=== PATIENT | female | born 1945 | race Caucasian/White ===

== ENCOUNTER 2016-04-29 13:53 | Inpatient (IN) | payer BC ==
[~2016-04-29] VITALS: Ht 170.2 cm; Wt 62.8 kg
[~2016-04-29 13:53] MED LIST: ASPI-465; CALC-600; CHOL100062
[2016-04-29] MEDS ORDERED: SOD CHLORIDE 0.9% 1,000 ML IV STA ×2 (14:09)
[2016-04-29] MEDS ORDERED: ALBUTEROL 0.5% (NEB) 2.5 MG/0.5 ML AMP INH STA ×2 (14:09→14:31)
[2016-04-29] MEDS ORDERED: ONDANSETRON 4 MG INJ IV STA ×2 (14:31→16:08)
--- NOTE | 2016-04-29 14:48 | RADRPT ---
PROCEDURE: XR Chest. CLINICAL INDICATION: Abdominal pain. TECHNIQUE: Single frontal portable chest was obtained. COMPARISON: None available.. FINDINGS: Cardiomediastinal silhouette appears normal There are atherosclerotic calcifications in the thoracic aorta. Pulmonary vasculature appears normal. There is bibasilar subsegmental atelectasis. Costophrenic angles are well defined. Mild rotoscoliosis in the dorsal spine. IMPRESSION: 1. Atherosclerotic calcifications in the thoracic aorta. 2. Mild bibasilar subsegmental atelectasis. RPTAT: [facility] Physician Nette Date Time Electronically viewed and signed by Physician Nette on 04/29/2016 14:47 /
[2016-04-29] MEDS ORDERED: IBUPROFEN 600 MG TAB PO ONE (15:00)
[2016-04-29 15:11] LABS: BASOPHILS % 0.3 % (0.0-2.0); EOSINOPHILS % 0.3 % (0.0-7.0); HEMATOCRIT 40.4 % (37.0-47.0); HEMOGLOBIN 13.8 g/dl (12.0-16.0); LYMPHOCYTES # 1.5 10^3/ul (0.8-2.9); LYMPHOCYTES % 12.5 % (15.0-51.0); MEAN CORPUSCULAR HEMOGLOBIN 31.2 pg (29.0-33.0); MEAN CORPUSCULAR HGB CONC 34.1 g/dl (32.0-37.0); MEAN CORPUSCULAR VOLUME 91.6 fl (82.0-101.0); MEAN PLATELET VOLUME 6.9 fl (7.4-10.4); MONOCYTE # 0.5 10^3/ul (0.3-0.9); MONOCYTES % 4.5 % (0.0-11.0); NEUTROPHIL # 9.9 10^3/ul (1.6-7.5); NEUTROPHILS % 82.4 % (39.0-77.0); PLATELET COUNT 338 10^3/UL (140-440); RED BLOOD COUNT 4.41 10^6/ul (4.20-5.40); RED CELL DISTRIBUTION WIDTH 12.8 % (11.5-14.5); UNCORRECTED WBC 12.1 10^3/ul (4.8-10.8); WHITE BLOOD COUNT 12.1 10^3/ul (4.8-10.8)
[2016-04-29 15:13] LABS: CONDITION 1
[2016-04-29 15:30] LABS: CHLORIDE 98 mmol/L (97-110); POTASSIUM 4.6 mmol/L (3.5-5.1); SODIUM 140 mmol/L (135-144)
[2016-04-29 15:32] LABS: ANION GAP 17 (8-16); BILIRUBIN,INDIRECT 0.4 mg/dl (0-1.1); BILIRUBIN,TOTAL 0.4 mg/dl (0.2-1.3); CARBON DIOXIDE 30 mmol/L (21-31)
[2016-04-29 15:33] LABS: ALANINE AMINOTRANSFERASE 26 IU/L (13-69); ALKALINE PHOSPHATASE 84 IU/L (42-121); ASPARTATE AMINO TRANSFERASE 40 IU/L (15-46); BLOOD UREA NITROGEN 17 mg/dl (7-20); GLUCOSE 110 mg/dl (70-220); TOTAL PROTEIN 8.4 g/dl (6.1-8.1)
[2016-04-29 15:53] LABS: TROPONIN-I < 0.012 ng/ml (0.00-0.12)
[2016-04-29] MEDS ORDERED: ASPI-664 PO (16:15)
[2016-04-29] MEDS ORDERED: CALC-176 PO (16:17)
[2016-04-29] MEDS ORDERED: CHOL100062 PO (16:17)
[2016-04-29] MEDS ORDERED: DENO60DI SQ (16:24)
--- NOTE | 2016-04-29 16:50 | ERA ---
ER Documentation Chief Complaint Date/Time DATE: 04/29/16 TIME: 16:43 Chief Complaint cough x 1 week, send by pmd r/o pneumonia? ROS All systems reviewed and are negative except as per history of present illness. Medications Home Meds Reported Medications Denosumab (Prolia) 60 Mg/1 Ml Disp.syrin, 60 MG SQ [id number] 04/29/16 Cholecalciferol* (Vitamin D3*) 1,000 Unit Tablet, 1000 UNIT PO DAILY, TAB 04/29/16 Calcium Cmb 2-Mag Cmb 12-Vit D3 (Calcium 500) 1 Each Tablet, 2 TAB PO DAILY, TAB 04/29/16 Aspirin* (Aspirin* EC) 81 Mg Tablet., 81 MG PO DAILY, TAB 04/29/16 Discontinued Reported Medications Calcium (Calcium) 500 Mg Tablet 12/31/09 Cholecalciferol* (Vitamin D3*) 1,000 Unit Tablet 12/31/09 Aspirin (Adult Low Dose Aspirin) 81 Mg Tablet. 12/31/09 Allergies Allergies: Coded Allergies: No Known Allergy (Verified , 04/29/16) PMhx/Soc Hypercholesterolemia History of Surgery: Yes (RIGHT TKR 12/25) Anesthesia Reaction: No Hx Neurological Disorder: No Hx Respiratory Disorders: No Hx Cardiac Disorders: No Hx Psychiatric Problems: No Hx Miscellaneous Medical Probl: Yes (OA, OSTEOPOROSIS) Hx Substance Use: No Hx Tobacco Use: No Smoking Status: Never smoker FmHx Family History: No diabetes Physical Exam Vitals Vital Signs Date Time Temp Pulse Resp B/P Pulse Ox O2 Delivery O2 Flow Rate FiO2 04/29/16 14:47 83 20 95 21 04/29/16 14:02 98.1 89 20 139/68 99 Physical Exam GENERAL: Well-developed, appears dehydrated, afebrile HEENT: Dry mucous membranes, pink conjunctiva, no cervical spine tenderness or step-off deformities, no goiter, no jaundice or icterus, extraocular movements intact without pain. No submandibular induration, and no pharyngeal erythema NEURO: Alert and oriented 3, cranial nerves II through XII intact bilaterally, pupils equal round reactive to light, no focal deficits or facial asymmetry, sensation intact distally Strength 5/5 in upper and lower extremities bilaterally CARDIAC: Regular rate and rhythm, no murmurs rubs or gallops LUNGS: Clear bilaterally no wheezing crackles or stridor ABDOMEN: Soft nontender, no guarding, no rigidity, no rebound, no psoas sign no obturator sign. Normoactive bowel sounds SKIN: Warm and dry to touch, no abrasions, contusions, or hematomas, no lacerations, no ecchymosis, no target lesions, and without ulcers EXTREMITIES: No clubbing cyanosis or edema, calves are bilaterally symmetrical, no Homans sign, no popliteal cord sign. Distal pulses equal and bilateral PSYCH: Normal affect without agitation or irritability Result Diagram: 04/29/16 1500 04/29/16 1500 Results 24 hrs Laboratory Tests Test 04/29/16 15:00 Alanine Aminotransferase (ALT/SGPT) 26IU/L Albumin 4.0g/dl Albumin/Globulin Ratio 0.90 Alkaline Phosphatase 84IU/L Anion Gap 17 Aspartate Amino Transf (AST/SGOT) 40IU/L Basophils # 0.010^3/ul Basophils % 0.3% Blood Morphology Comment Blood Urea Nitrogen 17mg/dl Calcium Level 9.0mg/dl Carbon Dioxide Level 30mmol/L Chloride Level 98mmol/L Creatinine 0.70mg/dl Direct Bilirubin 0.00mg/dl Eosinophils # 0.010^3/ul Eosinophils % 0.3% Globulin 4.40g/dl Glucose Level 110mg/dl Hematocrit 40.4% Hemoglobin 13.8g/dl Indirect Bilirubin 0.4mg/dl Lipase 109U/L Lymphocytes # 1.510^3/ul Lymphocytes % 12.5% Mean Corpuscular Hemoglobin 31.2pg Mean Corpuscular Hemoglobin Concent 34.1g/dl Mean Corpuscular Volume 91.6fl Mean Platelet Volume 6.9fl Monocytes # 0.510^3/ul Monocytes % 4.5% Neutrophils # 9.910^3/ul Neutrophils % 82.4% Nucleated Red Blood Cells # 0.010^3/ul Nucleated Red Blood Cells % 0.0/100WBC Platelet Count 85095^3/UL Potassium Level 4.6mmol/L Red Blood Count 4.4110^6/ul Red Cell Distribution Width 12.8% Sodium Level 140mmol/L Total Bilirubin 0.4mg/dl Total Protein 8.4g/dl Troponin I < 0.012ng/ml White Blood Count 12.110^3/ul Current Medications Medications (Trade) Dose Ordered Sig/Stephanie Route PRN Reason Start Time Stop Time Status Last Admin Dose Admin Sodium Chloride 1,000 ml @ 1,000 mls/hr Q1H STAT IV 04/29/16 14:09 04/29/16 15:08 DC 04/29/16 15:02 Sodium Chloride (NS) 1,000 ml @ 1,000 mls/hr Q1H STAT IV 04/29/16 14:09 04/29/16 15:08 DC 04/29/16 14:09 Albuterol (Proventil 0.5% (Neb)) 10 mg ONCE STAT INH 04/29/16 14:09 04/29/16 14:11 DC 04/29/16 14:44 Ondansetron HCl (Zofran Inj) 4 mg ONCE STAT IV 04/29/16 14:31 04/29/16 14:32 DC 04/29/16 15:02 Ibuprofen (Motrin) 600 mg ONCE ONCE PO 04/29/16 15:00 04/29/16 15:01 DC 04/29/16 15:02 Albuterol (Proventil 0.5% (Neb)) 10 mg ONCE STAT INH 04/29/16 14:31 04/29/16 14:32 DC Ondansetron HCl (Zofran Inj) 4 mg ONCE STAT IV 04/29/16 16:08 04/29/16 16:09 DC 04/29/16 16:30 Procedures/MDM IV line was established patient was placed on cardiac sonographer rhythm strip revealed a sinus rhythm at about 90 bpm with upright P and T waves. Patient was afebrile. I administered albuterol 10 mg via nebulizer for cough and complaints of shortness of breath. Patient also received 2 L normal saline intravenously for dehydration. Patient also received ibuprofen 600 mg p.o. and Zofran 4 mg IV for nausea EKG performed, read by me: 86 bpm, normal sinus rhythm, normal axis, no acute ST segment changes, narrow QRS complex, with good R-wave progression in precordial leads. One AP view of the chest performed, read by me reveals no acute infiltrates, normal mediastinum, sharp costophrenic and cardiac borders, no air under the diaphragm. Otherwise unremarkable chest x-ray. Influenza AB swabs were negative. CBC was unremarkable, electrolytes revealed dehydration with an increased BUN/ creatinine ratio of 17/0.7, liver function tests are normal, troponin was negative. For continued nausea administered another dose of Zofran 4 mg IV with good response. Departure Diagnosis: Primary Impression: Syncope Qualified Code: R55 - Syncope, unspecified syncope type Additional Impressions: Dehydration Acute bronchitis Qualified Code: J20.9 - Acute bronchitis, unspecified organism Condition: Fair FREDIS ALONZO MD Apr 29, 2016 16:50
[2016-04-29] MEDS ORDERED: MAGNESIUM HYDROXIDE 30ML CUP PO PRN (18:00)
[2016-04-29] MEDS ORDERED: NITROGLYCERIN (SL) 0.4 MG TAB SL PRN (18:00)
[2016-04-29] MEDS ORDERED: NACL 0.9% 3 ML SYG IV SCH (18:00)
[2016-04-29] MEDS ORDERED: ACETAMINOPHEN 325 MG TAB PO PRN (18:00)
[2016-04-29] MEDS ORDERED: ALBUTEROL 0.5% (NEB) 2.5 MG/0.5 ML AMP HHN PRN (18:00)
[2016-04-29] MEDS ORDERED: DOCUSATE SODIUM 100 MG CAP PO PRN (18:00)
[2016-04-29] MEDS ORDERED: LORAZEPAM 0.5 MG TAB PO PRN (18:00)
[2016-04-29] MEDS ORDERED: BISACODYL 10 MG SUPP PR PRN (18:00)
[2016-04-29] MEDS ORDERED: METOCLOPRAMIDE 10 MG INJ IV ONE (19:00)
--- NOTE | 2016-04-29 19:16 | HP ---
DATE OF ADMISSION: 04/29/2016 PRIMARY CARE PHYSICIAN: Ayad Patel MD CHIEF COMPLAINT ON ADMISSION: Cough and syncopal episode. HISTORY OF PRESENT ILLNESS: This is a 70-year-old female with history of osteoporosis, who presente d to the emergency department, sent over by her primary care physician with reported syncopal episod e approximately a week ago and ongoing cough and upper respiratory congestion. The patient reports that she went to gym last week last Monday, she was feeling fairly good. After that she took a ho t shower and coming out of the hot shower she thinks that she was dehydrated and had a syncopal epis ode. No palpitation, no nausea, vomiting before or after the episode. No change of vision and it w as a brief episode that resolved subsequently. She did not have any subsequent episodes of syncope. She had a similar episode 10 years ago, also related to dehydration. 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 However, over the past week she has been having an ongoing cough, upper respira tory congestion. She reports generalized weakness to a point where she can barely get out of bed. She has episodes of nausea, especially with coughing fits, but no vomiting. She has decreased appet ite. She noticed today some areas of macular rash on her abdomen, just some spots, not pruritic. S he denies any fevers or chills. She denies any focal weakness. She talked to her primary care phys vesna approximately 2 days ago who recommended for her to just rest at home, stay hydrated as this i s most likely a viral URI; however, she has not been improving and if anything worsening; therefore, she came to the emergency department today after talking to her primary care physician. Also, they were concerned related to her syncopal episode last week. She is currently hemodynamically stable. She was started on IV fluids for hydration. Influenza is negative. Her white count is slightly e levated at 12. She has been started on antibiotics. She is being admitted to telemetry for cardiac monitoring related to the previous episodes of syncope, but likely that was a vasovagal episode. T he patient understands that if she remains stable and there are no acute findings, she may be discha rged as early as 24 hours from now. If she requires additional day in the hospital, she may stay he re up to Monday at the latest. ALLERGIES: NO KNOWN ALLERGIES. PAST MEDICAL HISTORY: Osteoporosis. PAST SURGICAL HISTORY: Status post right total knee arthroplasty. SOCIAL HISTORY: The patient denies any tobacco or alcohol use. REVIEW OF SYSTEMS: As per HPI. OUTPATIENT MEDICATIONS: 1. Aspirin 81 mg p.o. daily. 2. Calcium 500 two tabs p.o. daily. 3. Vitamin D3 1000 units p.o. daily. 4. Prolia 60 mg subcutaneously q. 6 months for her osteoporosis. Her last dose was approximately 1 to 2 months ago. PHYSICAL EXAMINATION: VITAL SIGNS: Temperature 98.1, heart rate of 80, respiratory rate of 20, blood pressure 136/68. Sh e is satting 95% on room air. She currently has 2 liters nasal cannula on. GENERAL: She is alert and oriented x4, in no acute distress; however, is thin and looks tired. HEENT: Pupils are equally round and reactive to light. Extraocular muscles are intact. Anicteric sclerae. NECK: No JVD, no thyromegaly noted. HEART: Regular rate and rhythm. No murmur, rubs, or gallops. LUNGS: Clear to auscultation; however, the patient is coughing and sounds congested upper airway. ABDOMEN: Soft, nontender, nondistended. Bowel sounds are present. EXTREMITIES: No edema, clubbing or cyanosis are noted. SKIN: She does have macular spots of rash with no further erythema noted. No papular quality to th e rash, no pruritus and this seems to be just some spots on her abdomen and also on her chest. EKG shows sinus rhythm, no acute ST or T-wave abnormalities. LABORATORY DATA: White blood cell count 12.1 with 82% neutrophils, hemoglobin 13.8, hematocrit 40.4 , platelet count of 338. Chemistry with a sodium of 140, potassium 4.6, chloride 98, bicarbonate 30 , BUN 17, creatinine 0.70, calcium 9.0, glucose 110, total bilirubin 0.4, AST 40, ALT 26, alkaline p hosphatase 84. Troponin less than 0.012. Total protein 8.4, albumin 4.0. Lipase is 109. RADIOLOGICAL DATA: Chest x-ray shows mild bibasilar subsegmental atelectasis. Pulmonary vasculatur e appear normal. ASSESSMENT AND PLAN: This is a 70-year-old female with: 1. Likely upper respiratory infection or bronchitis, most likely viral, given the prolonged length of this infection and the symptoms of the patient. However, given the slightly elevated white blood cell count with a mild left shift, I will give her a dose of Levaquin to see if she improves any fu rther. I have ordered a nebulizer treatment as needed only. She is not hypoxic or dyspneic current ly. Will continue IV fluid and supportive care. Influenza is negative. 2. Syncopal episode, likely vasovagal. Cardiac enzymes are negative x1. EKG within normal. We wi ll check another series of cardiac enzyme in 8 hours. Also, 2-D echocardiogram has been ordered to rule out any valvular issues. 3. Osteoporosis. Will continue her supplement total vitamins. She is to resume Prolia as an outpa tient. 4. Prophylaxis. SCDs to lower extremity for DVT prophylaxis and Pepcid for GI prophylaxis. DISPOSITION: Admit to telemetry, will monitor overnight, 2-D echocardiogram was also ordered. Dictated By: ALFONSO FIGUEROA/JASWINDER Conf#: [id number] DID#: [id number]
[2016-04-29] MEDS ORDERED: LORAZEPAM 2 MG INJ IV ONE (20:00)
[2016-04-29] MEDS: LEVOFLOXACIN 500 MG TAB PO SCH (20:10)
[2016-04-29] MEDS: SOD CHLORIDE 0.9% 1,000 ML IV SCH (20:12)
[2016-04-29 20:46] LABS: ADD UMIC YES; URINE BILIRUBIN (Dip) NEGATIVE (NEGATIVE); URINE BLOOD (Dip) 1+ (NEGATIVE); URINE COLOR LT. YELLOW (YELLOW); URINE GLUCOSE (Dip) NEGATIVE (NEGATIVE); URINE KETONES (Dip) NEGATIVE (NEGATIVE); URINE LEUKOCYTE ESTERASE (Dip) NEGATIVE (NEGATIVE); URINE NITRITE (Dip) NEGATIVE (NEGATIVE); URINE TOTAL PROTEIN (Dip) 4+ (NEGATIVE); URINE UROBILINOGEN (Dip) 0.2 E.U./dL (0.1-1.0)
[2016-04-29 21:41] LABS: BACTERIA,URINE FEW; SQUAMOUS EPITHELIAL CELL,UR FEW; URINE RBCS 0-2 /HPF (0)
[2016-04-29] MEDS: FAMOTIDINE 20 MG TAB PO SCH (22:07)
[2016-04-29 23:50] LABS: CREATINE KINASE 221 IU/L (23-200)
[2016-04-30] LABS: CK-MB 1.04 ng/ml (0.0-2.4)
[2016-04-30 00:08] LABS: TROPONIN-I < 0.010 ng/ml (0.00-0.12)
[2016-04-30] MEDS: GUAIFENESIN/DM 5ML CUP PO PRN ×4 (05:02→22:44)
[2016-04-30 06:19] LABS: BASOPHILS % 0.3 % (0.0-2.0); EOSINOPHILS % 0.1 % (0.0-7.0); HEMATOCRIT 34.3 % (37.0-47.0); HEMOGLOBIN 11.7 g/dl (12.0-16.0); LYMPHOCYTES # 1.1 10^3/ul (0.8-2.9); LYMPHOCYTES % 9.9 % (15.0-51.0); MEAN CORPUSCULAR HEMOGLOBIN 31.3 pg (29.0-33.0); MEAN CORPUSCULAR VOLUME 91.9 fl (82.0-101.0); MEAN PLATELET VOLUME 7.1 fl (7.4-10.4); MONOCYTE # 0.4 10^3/ul (0.3-0.9); MONOCYTES % 3.6 % (0.0-11.0); NEUTROPHILS % 86.1 % (39.0-77.0); PLATELET COUNT 264 10^3/UL (140-440); RED BLOOD COUNT 3.73 10^6/ul (4.20-5.40); UNCORRECTED WBC 11.6 10^3/ul (4.8-10.8); WHITE BLOOD COUNT 11.6 10^3/ul (4.8-10.8)
[2016-04-30 06:26] LABS: ALBUMIN 3.2 g/dl (3.3-4.9); POTASSIUM 4.2 mmol/L (3.5-5.1)
[2016-04-30 06:28] LABS: CONDITION 1; CREATININE 0.72 mg/dl (0.44-1.00)
[2016-04-30 06:29] LABS: ALBUMIN/GLOBULIN RATIO 0.96; BILIRUBIN,INDIRECT 0.4 mg/dl (0-1.1); BILIRUBIN,TOTAL 0.4 mg/dl (0.2-1.3); CALCIUM 7.6 mg/dl (8.4-10.2); TOTAL PROTEIN 6.5 g/dl (6.1-8.1)
[2016-04-30 06:30] LABS: CHOL/HDL RATIO 3.3 RATIO; MAGNESIUM 2.1 mg/dl (1.7-2.5)
[2016-04-30 07:00] LABS: THYROID STIMULATING HORMONE 2.13 MIU/L (0.465-4.680)
[2016-04-30] MEDS: SOD CHLORIDE 0.9% 1,000 ML IV SCH ×2 (07:01→17:56)
[2016-04-30] MEDS ORDERED: ENOXAPARIN 40 MG/0.4 ML SYG SC SCH (09:00)
[2016-04-30] MEDS: LEVOFLOXACIN 500 MG TAB PO SCH (09:46)
[2016-04-30] MEDS: CHOLECALCIFEROL 1,000 UNIT TAB PO SCH (09:46)
[2016-04-30] MEDS: ASPIRIN (EC) 81 MG TAB PO SCH (09:46)
[2016-04-30] MEDS: FAMOTIDINE 20 MG TAB PO SCH ×2 (09:46→21:44)
[2016-04-30] MEDS: ONDANSETRON 4 MG INJ IV PRN ×2 (12:02→22:54)
[2016-04-30] MEDS ORDERED: METOCLOPRAMIDE (1 MG/ML) 10 ML CUP PO PRN (13:00)
--- NOTE | 2016-04-30 13:05 | DS ---
Date/Time of Note Date/Time of Note DATE: 04/30/16 TIME: 12:51 Discharge Summary Admission/Discharge Info Admit Date/Time 29 Apr 2016 Discharge Date/Time 30 Apr 2016 Final Diagnosis Viral bronchitis, gastroenteritis Patient Condition: Good Consults None Procedures Echocardiogram Portable chest x-ray Influenza screening Hx of Present Illness 70-year-old patient of Dr. Ayad Patel who he referred yesterday to the [facility] emergency department because of a syncopal episode a week ago followed by continued dry cough and nausea/dehydration. She went to gym last Monday, and after taking a hot shower had a syncopal episode. No palpitations and no nausea or vomiting before or after the episode. 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 Over the ensuing week she developed cough and upper respiratory congestion. She reports generalized weakness to a point where she could barely get out of bed, with episodes of nausea and decreased appetite. Her [id number] and granddaughter both developed a gastroenteritis-type infection this past week. The patient noticed yesterday some areas of macular rash on her abdomen, without pruritis. No fever or chills. ALLERGIES: NO KNOWN ALLERGIES. PAST MEDICAL HISTORY: Osteoporosis, proteinuria (evaluated by Carlos Costa MD last year) PAST SURGICAL HISTORY: Status post right total knee arthroplasty. Hospital Course In the ER she was started on IV fluids for hydration. Influenza screen negative. WBC elevated at 12k/ul, and she was started empirically on Levaquin 750mg PO daily, receiving two doses. She was admitted to telemetry for cardiac monitoring, but remained in the ER due to lack of floor beds. She experienced no ongoing lightheadedness or pre-syncope. The episode a week ago seemed most consistent with vasovagal syncope. Echocardiogram was obtained this morning and showed . Her EKG showed normal sinus rhythm, with no acute ST or T- wave abnormalities. Lab studies showed white blood cell count 12.1k/ul with 82 % neutrophils, hemoglobin 13.8g/dl, hematocrit 40.4%, platelet count of 338k/ ul. Chemistry with a sodium of 140, potassium 4.6, chloride 98, bicarbonate 30 , BUN 17, creatinine 0.70, calcium 9.0, glucose 110, total bilirubin 0.4, AST 40 , ALT 26, alkaline phosphatase 84. Troponin less than 0.012. Total protein 8.4 , albumin 4.0. Lipase is 109. Portable chest x-ray appeared normal to me, and was interpreted as showing mild bibasilar subsegmental atelectasis. This morning she complained mostly of nausea, non-responsive to Zofran but with a good response last night to Reglan IV. She is breathing comfortably, with no chest pain, headache, of fever. Persistent mild cough. Influenza screening was negative. Cardiac enzymes also negative, and EKG within normal limits. 2- D echocardiogram showed grade 2 diastolic dysfunction, but no segmental wall motion abnormalities or valvular issues. GENERAL: Thin, young-appearing, but also very tired-looking. HEENT: Pupils normal, no conjunctivitis. Extraocular muscles are intact. Anicteric sclerae. NECK: No JVD, no thyromegaly noted. HEART: Regular rate and rhythm. No murmur, rubs, or gallops. LUNGS: Clear to auscultation; dry cough. ABDOMEN: Soft, nontender, nondistended. Bowel sounds normal. EXTREMITIES: No edema, clubbing or cyanosis are noted. SKIN: Truncal macular rash, as noted yesterday 05/01/16 ADDENDUM: Patient complained of persistent nausea last night and said she had no one to stay with her; all her kids have young children. Today during the day she continued complaining of dizziness, though nausea was substantially improved. Cough persisted. She received normal saline through the course of the day, with good urine output and no difficulty ambulating. Her physical exam was unchanged, but tonight she again declined to be discharged for the same reasons. Her daughter cited "a liability risk" in light of her previous syncopal episode, which I think was almost certainly a vasovagal syncope related to taking a hot shower after a workout while dehydrated. Home Meds Active Scripts Ondansetron Hcl* (Zofran*) 4 Mg Tab, 4 MG PO Q6H Y for NAUSEA AND OR VOMITING, # 30 TAB Prov:ALFONSO COLBY 05/03/16 Reported Medications Denosumab (Prolia) 60 Mg/1 Ml Disp.syrin, 60 MG SQ [id number] 04/29/16 Cholecalciferol* (Vitamin D3*) 1,000 Unit Tablet, 1000 UNIT PO DAILY, TAB 04/29/16 Calcium Cmb 2-Mag Cmb 12-Vit D3 (Calcium 500) 1 Each Tablet, 2 TAB PO DAILY, TAB 04/29/16 Aspirin* (Aspirin* EC) 81 Mg Tablet., 81 MG PO DAILY, TAB 04/29/16 Discontinued Reported Medications Calcium (Calcium) 500 Mg Tablet 12/31/09 Cholecalciferol* (Vitamin D3*) 1,000 Unit Tablet 12/31/09 Aspirin (Adult Low Dose Aspirin) 81 Mg Tablet. 12/31/09 Follow-up Plan Dr. Patel in the next week. Pending Labs Laboratory Tests Test 04/29/16 15:00 04/29/16 20:15 04/29/16 22:50 04/30/16 05:26 Alanine Aminotransferase (ALT/SGPT) 26IU/L (13-69) 24IU/L (13-69) Albumin 4.0g/dl (3.3-4.9) 3.2g/dl (3.3-4.9) Albumin/Globulin Ratio 0.90 0.96 Alkaline Phosphatase 84IU/L (42-121) 69IU/L (42-121) Anion Gap 17 (8-16) 17 (8-16) Aspartate Amino Transf (AST/SGOT) 40IU/L (15-46) 25IU/L (15-46) Basophils # 0.010^3/ul (0.0-0.1) 0.010^3/ul (0.0-0.1) Basophils % 0.3% (0.0-2.0) 0.3% (0.0-2.0) Blood Morphology Comment Blood Urea Nitrogen 17mg/dl (7-20) 11mg/dl (7-20) Calcium Level 9.0mg/dl (8.4-10.2) 7.6mg/dl (8.4-10.2) Carbon Dioxide Level 30mmol/L (21-31) 25mmol/L (21-31) Chloride Level 98mmol/L (97-110) 102mmol/L (97-110) Creatinine 0.70mg/dl (0.44-1.00) 0.72mg/dl (0.44-1.00) Direct Bilirubin 0.00mg/dl (0.00-0.20) 0.00mg/dl (0.00-0.20) Eosinophils # 0.010^3/ul (0.0-0.5) 0.010^3/ul (0.0-0.5) Eosinophils % 0.3% (0.0-7.0) 0.1% (0.0-7.0) Globulin 4.40g/dl (1.3-3.2) 3.30g/dl (1.3-3.2) Glucose Level 110mg/dl (70-220) 143mg/dl (70-220) Hematocrit 40.4% (37.0-47.0) 34.3% (37.0-47.0) Hemoglobin 13.8g/dl (12.0-16.0) 11.7g/dl (12.0-16.0) Indirect Bilirubin 0.4mg/dl (0-1.1) 0.4mg/dl (0-1.1) Lipase 109U/L (23-300) Lymphocytes # 1.510^3/ul (0.8-2.9) 1.110^3/ul (0.8-2.9) Lymphocytes % 12.5% (15.0-51.0) 9.9% (15.0-51.0) Mean Corpuscular Hemoglobin 31.2pg (29.0-33.0) 31.3pg (29.0-33.0) Mean Corpuscular Hemoglobin Concent 34.1g/dl (32.0-37.0) 34.0g/dl (32.0-37.0) Mean Corpuscular Volume 91.6fl (82.0-101.0) 91.9fl (82.0-101.0) Mean Platelet Volume 6.9fl (7.4-10.4) 7.1fl (7.4-10.4) Monocytes # 0.510^3/ul (0.3-0.9) 0.410^3/ul (0.3-0.9) Monocytes % 4.5% (0.0-11.0) 3.6% (0.0-11.0) Neutrophils # 9.910^3/ul (1.6-7.5) 10.010^3/ul (1.6-7.5) Neutrophils % 82.4% (39.0-77.0) 86.1% (39.0-77.0) Nucleated Red Blood Cells # 0.010^3/ul (0.0-0.0) 0.010^3/ul (0.0-0.0) Nucleated Red Blood Cells % 0.0/100WBC (0.0-0.0) 0.0/100WBC (0.0-0.0) Platelet Count 55568^3/UL (140-440) 83444^3/UL (140-440) Potassium Level 4.6mmol/L (3.5-5.1) 4.2mmol/L (3.5-5.1) Red Blood Count 4.4110^6/ul (4.20-5.40) 3.7310^6/ul (4.20-5.40) Red Cell Distribution Width 12.8% (11.5-14.5) 13.0% (11.5-14.5) Sodium Level 140mmol/L (135-144) 140mmol/L (135-144) Total Bilirubin 0.4mg/dl (0.2-1.3) 0.4mg/dl (0.2-1.3) Total Protein 8.4g/dl (6.1-8.1) 6.5g/dl (6.1-8.1) Troponin I < 0.012ng/ml (0.00-0.12) < 0.010ng/ml (0.00-0.12) White Blood Count 12.110^3/ul (4.8-10.8) 11.610^3/ul (4.8-10.8) Urine Bacteria FEW Urine Bilirubin NEGATIVE (NEGATIVE) Urine Clarity CLEAR (CLEAR) Urine Color LT. YELLOW (YELLOW) Urine Glucose NEGATIVE% (NEGATIVE) Urine Hemoglobin 1+ (NEGATIVE) Urine Ketones NEGATIVE (NEGATIVE) Urine Leukocyte Esterase NEGATIVE (NEGATIVE) Urine Microscopic RBC 0-2/HPF (0) Urine Microscopic WBC 0-2/HPF (0) Urine Nitrite NEGATIVE (NEGATIVE) Urine Specific [place] 1.020 (1.003-1.030) Urine Squamous Epithelial Cells FEW Urine Total Protein 4+ (NEGATIVE) Urine Urobilinogen 0.2 E.U./dL (0.1-1.0) Urine pH 6.0 (5.0-9.0) Creatine Kinase 221IU/L (23-200) Creatine Kinase Index 0.5 Creatinine Kinase MB (Mass) 1.04ng/ml (0.0-2.4) Cholesterol Level 127mg/dl (100-200) Cholesterol/HDL Ratio 3.3RATIO Free Thyroxine 1.52ng/dl (0.78-2.44) HDL Cholesterol 38mg/dl (33-92) LDL Cholesterol, Calculated 80mg/dl Magnesium Level 2.1mg/dl (1.7-2.5) Thyroid Stimulating Hormone (TSH) 2.130MIU/L (0.465-4.680) Triglycerides Level 46mg/dl (0-149) Microbiology Date/Time Source Procedure Growth Status 04/29/16 15:30 Nasopharyngeal Influenza Types A,B Direct EIA - Final Complete Copies To: CC: ALFONSO COLBY JOHN P. M.D. Apr 30, 2016 13:04 MAGALY PATTERSON M.D. Apr 30, 2016 13:04
--- NOTE | 2016-04-30 13:11 | PDOCDIS ---
MAGALY PATTERSON M.D. 04/30/16 1311: Discharge Instructions DIAGNOSIS Discharge Diagnosis: Viral bronchitis, gastroenteritis CONDITION Patient Condition: Good HOME CARE INSTRUCTIONS: Diet Instructions: Reduced Sodium ACTIVITY: Activity Restrictions: Slowly Increase Activity FOLLOW UP/APPOINTMENTS Appointments Dr. Ayad Patel in the next week ALFONSO COLBY 05/02/16 1521: MAGALY PATTERSON M.D. Apr 30, 2016 13:11 ALFONSO COLBY May 02, 2016 15:21
--- NOTE | 2016-04-30 15:04 | RADRPT ---
Echocardiogram Report Patient Name: RENITA BAÑUELOS Gender: Female Date: 1945 Study Date: 30-Apr-2016 Web Project Manager: Bing Location: [facility] Ref. Physician: ARASH COLBY Quality: Adequate Procedures: Transthoracic echocardiogram with complete 2D, M-Mode, and doppler examination. Indications: Syncope. 2D/M Mode Doppler Measurement Value Normal Ranges Measurement Value Normal Ranges LVIDd 2D 4.4 3.5 - 5.6 cm AV Peak Nik 1.3 m/sec LVIDs 2D 2.7 2.1 - 4.1 cm AV Peak PG 7.0 mmHg FS 2D 39.6 % LVOT Peak Nik 1.3 m/sec LVPWd 2D 1.2 0.6 - 1.1 cm LVOT Peak PG 7.0 mmHg IVSd 2D 1.0 0.6 - 1.1 cm MV E Peak Nik 0.8 m/sec IVS/LVPW 2D 0.8 MV A Peak Nik 0.9 m/sec AoR Diam 2D 3.2 2.0 - 3.7 cm MV E/A 0.9 LA/Ao 2D 1 0 - 1 MV Decel Time 204 msec EDV 2D 84.6 cm3 MV E/A 0.9 ESV 2D 18.6 cm3 TR Peak Nik 2.7 m/sec LA Dimen 2D 3.5 2.3 - 4.0 cm TR Peak PG 29.0 mmHg Findings Left Ventricle: Normal left ventricular systolic function. Normal left ventricular cavity size. Mild concentric left ventricular hypertrophy. Ejection fraction is visually estimated at 65 %. Tissue Doppler/Mitral Doppler indices are consistent with pseudonormalization with mildly elevated left atrial pressure (Stage II diastolic dysfunction). Right Ventricle: Normal right ventricular size. Normal right ventricular systolic function. Left Atrium: The left atrium is normal in size. Right Atrium: There is mild enlargement of right atrium. Mitral Valve: Mild mitral leaflet calcification. Trace mitral regurgitation. Aortic Valve: Normal trileaflet aortic valve structure. Trace aortic valve regurgitation. Tricuspid Valve: Normal appearance of the tricuspid valve. Estimated peak PA systolic pressure 44 mmHg. There is mild tricuspid regurgitation. Pulmonic Valve: There is mild pulmonic regurgitation. Pericardium: Normal pericardium with no significant pericardial effusion. Aorta: Normal aortic root. IVC: Dilated inferior vena cava with poor inspiratory collapse consistent with elevated right atrial pressures. Pulmonary Artery: Not well visualized. Conclusions 1.Normal left ventricular systolic function. Normal left ventricular cavity size. Mild concentric left ventricular hypertrophy. Ejection fraction is visually estimated at 65 %. Tissue Doppler/Mitral Doppler indices are consistent with pseudonormalization with mildly elevated left atrial pressure (Stage II diastolic dysfunction). 2.There is mild enlargement of right atrium. 3.Mild mitral leaflet calcification. Trace mitral regurgitation. 4.Normal trileaflet aortic valve structure. Trace aortic valve regurgitation. 5.Normal appearance of the tricuspid valve. Estimated peak PA systolic pressure 44 mmHg. There is mild tricuspid regurgitation. 6.Dilated inferior vena cava with poor inspiratory collapse consistent with elevated right atrial pressures. Electronically Signed By: Vincenzo Pastrana 30-Apr-2016 15:03:16 -0800 Patient Name: RENITA BAÑUELOS Study Date: 30-Apr-2016 [id number]
[2016-04-30 16:00] VITALS: TEMP 98
[2016-04-30 18:01] VITALS: PULSE 72
[2016-04-30 18:34] VITALS: Ht 170.2 cm; Wt 62.8 kg
[2016-04-30 20:00] VITALS: BP 118/60; RESP 20
[2016-04-30 20:31] VITALS: PULSE 65
[2016-05-01] VITALS (11 sets, daily range): BP systolic 127–155; BP diastolic 63–70; PULSE 50–65; RESP 18–20
[2016-05-01] MEDS: FAMOTIDINE 20 MG TAB PO SCH ×2 (09:00→19:50)
[2016-05-01] MEDS: CHOLECALCIFEROL 1,000 UNIT TAB PO SCH (09:00)
[2016-05-01] MEDS: ASPIRIN (EC) 81 MG TAB PO SCH (09:00)
[2016-05-01] MEDS: GUAIFENESIN/DM 5ML CUP PO PRN ×3 (09:03→19:50)
[2016-05-01] MEDS: ONDANSETRON 4 MG INJ IV PRN (09:03)
[2016-05-01] MEDS: SOD CHLORIDE 0.9% 1,000 ML IV SCH ×2 (13:28→19:50)
[2016-05-02] VITALS (14 sets, daily range): BP systolic 112–159; BP diastolic 56–71; PULSE 40–62; RESP 18–20
[2016-05-02] MEDS: GUAIFENESIN/DM 5ML CUP PO PRN ×4 (03:52→21:50)
[2016-05-02] MEDS: SOD CHLORIDE 0.9% 1,000 ML IV SCH (03:53)
[2016-05-02] MEDS: CHOLECALCIFEROL 1,000 UNIT TAB PO SCH (08:49)
[2016-05-02] MEDS: FAMOTIDINE 20 MG TAB PO SCH ×2 (08:49→21:44)
[2016-05-02] MEDS: ASPIRIN (EC) 81 MG TAB PO SCH (08:49)
[2016-05-02 12:30] LABS: POTASSIUM 4.6 mmol/L (3.5-5.1)
[2016-05-02 12:33] LABS: CREATININE 0.78 mg/dl (0.44-1.00)
[2016-05-02 12:34] LABS: CALCIUM 9.5 mg/dl (8.4-10.2); MAGNESIUM 1.6 mg/dl (1.7-2.5)
[2016-05-02] MEDS: ONDANSETRON 4 MG INJ IV PRN (16:13)
--- NOTE | 2016-05-02 16:57 | PN ---
Date/Time of Note Date/Time of Note DATE: 05/02/16 TIME: 16:39 Assessment/Plan VTE Prophylaxis VTE Prophylaxis Intervention: SCD's Lines/Catheters IV Catheter Type (from Nrs): Peripheral IV Assessment/Plan Assessment/Plan 70-year-old female with: 1. Likely viral upper respiratory infection or bronchitis, given the prolonged length of this infection and the symptoms of the patient. Nebulizer treatment as needed only. She is not hypoxic or dyspneic Tolerating po and fluids but feels still weak so reluctant to go home as she is alone D/c IVF, continue symptomatic treatment. 2. Syncopal episode, likely vasovagal. Work up negative. 2-D echo wnl. 3. Hypomagnesemia: replete 4. Osteoporosis. Will continue her supplement total vitamins. She is to resume Prolia as an outpatient. Prophylaxis. SCDs to lower extremity for DVT prophylaxis and Pepcid for GI prophylaxis. DISPOSITION: PT eval. D/c plan home w/i 24 hrs . Subjective 24 Hr Interval Summary Free Text/Dictation Mild orthostasis with SBP 170 to 130 when stood up, with some dizziness No fevers, tolerating po better PT eval ongoing and Replete Mag Exam/Review of Systems Vital Signs Vitals Vital Signs Date Time Temp Pulse Resp B/P Pulse Ox O2 Delivery O2 Flow Rate FiO2 05/02/16 15:00 98.2 58 20 159/71 94 04/30/16 16:00 Room Air 04/30/16 12:00 2.0 04/30/16 04:52 21 Intake and Output 05/01/16 05/01/16 05/02/16 15:00 23:00 07:00 Intake Total 600 ml 250 ml Balance 600 ml 250 ml Exam Constitutional: alert, oriented, well developed Respiratory: clear to auscultation, normal air movement, other (cough and coughnig fit on/off ) Cardiovascular: nl pulses, regular rate and rhythm Gastrointestinal: non-tender, soft Musculoskeletal: nl extremities to inspection 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, nl mental status, nl speech, other Results Result Diagram: 04/30/16 0526 05/02/16 1153 Results 24 hrs Laboratory Tests Test 05/02/16 11:53 Anion Gap 16 Blood Urea Nitrogen 20 Calcium Level 9.5 Carbon Dioxide Level 27 Chloride Level 103 Creatinine 0.78 Glucose Level 111 Magnesium Level 1.6 L Potassium Level 4.6 Sodium Level 141 Medications Medications Current Medications Aspirin (Halfprin) 81 mg DAILY PO Last administered on 05/02/16 08:49; Admin Dose 81 MG; Start 04/30/16 at 09:00 Cholecalciferol (Vitamin D) 1,000 unit DAILY PO Last administered on 05/02/16 08:49; Admin Dose 1,000 UNIT; Start 04/30/16 at 09:00 Lorazepam (Ativan) 0.5 mg Q8H PRN PO ANXIETY Last administered on 04/30/16 13: 44; Admin Dose 0.5 MG; Start 04/29/16 at 18:00 Ondansetron HCl (Zofran Inj) 4 mg Q6H PRN IV NAUSEA AND/OR VOMITING Last administered on 05/02/16 16:13; Admin Dose 4 MG; Start 04/29/16 at 18:00 Nitroglycerin (Nitroglycerin (Sl Tab) 0.4 Mg) 1 tab Q5M PRN SL CHEST PAIN; Start 04/29/16 at 18:00 Acetaminophen (Tylenol Tab) 650 mg Q6H PRN PO PAIN LEVEL 1-3 OR FEVER; Start at 18:00 Docusate Sodium (Colace) 100 mg Q12H PRN PO CONSTIPATION; Start 04/29/16 at 18: 00 Magnesium Hydroxide (Milk Of Mag) 30 ml DAILY PRN PO CONSTIPATION; Start at 18:00 Bisacodyl (Dulcolax Supp) 10 mg DAILY PRN [place] CONSTIPATION; Start 04/29/16 at 18 :00 Famotidine (Pepcid) 20 mg Q12 PO Last administered on 05/02/16 08:49; Admin Dose 20 MG; Start 04/29/16 at 21:00 Guaifenesin/ Dextromethorphan (Robitussin Dm Liquid Cup) 10 ml Q4H PRN PO COUGH Last administered on 05/02/16 16:08; Admin Dose 10 ML; Start 04/29/16 at 18:00 Metoclopramide HCl (Reglan Liq) 10 mg Q4 PRN PO nausea Last administered on 14:35; Admin Dose 10 MG; Start 04/30/16 at 13:00 Procedures Procedures Echocardiogram Report Patient Name: RENITA BAÑUELOS Gender: Female Date: 1945 Study Date: 30-Apr-2016 Biller: Bing Location: [facility] Ref. Physician: ARASH COLBY Quality: Adequate Procedures: Transthoracic echocardiogram with complete 2D, M-Mode, and doppler examination. Indications: Syncope. 2D/M Mode Doppler Measurement Value Normal Ranges Measurement Value Normal Ranges LVIDd 2D 4.4 3.5 - 5.6 cm AV Peak Nik 1.3 m/sec LVIDs 2D 2.7 2.1 - 4.1 cm AV Peak PG 7.0 mmHg FS 2D 39.6 % LVOT Peak Nik 1.3 m/sec LVPWd 2D 1.2 0.6 - 1.1 cm LVOT Peak PG 7.0 mmHg IVSd 2D 1.0 0.6 - 1.1 cm MV E Peak Nik 0.8 m/sec IVS/LVPW 2D 0.8 MV A Peak Nik 0.9 m/sec AoR Diam 2D 3.2 2.0 - 3.7 cm MV E/A 0.9 LA/Ao 2D 1 0 - 1 MV Decel Time 204 msec EDV 2D 84.6 cm3 MV E/A 0.9 ESV 2D 18.6 cm3 TR Peak Nik 2.7 m/sec LA Dimen 2D 3.5 2.3 - 4.0 cm TR Peak PG 29.0 mmHg Findings Left Ventricle: Normal left ventricular systolic function. Normal left ventricular cavity size. Mild concentric left ventricular hypertrophy. Ejection fraction is visually estimated at 65 %. Tissue Doppler/Mitral Doppler indices are consistent with pseudonormalization with mildly elevated left atrial pressure (Stage II diastolic dysfunction). Right Ventricle: Normal right ventricular size. Normal right ventricular systolic function. Left Atrium: The left atrium is normal in size. Right Atrium: There is mild enlargement of right atrium. Mitral Valve: Mild mitral leaflet calcification. Trace mitral regurgitation. Aortic Valve: Normal trileaflet aortic valve structure. Trace aortic valve regurgitation. Tricuspid Valve: Normal appearance of the tricuspid valve. Estimated peak PA systolic pressure 44 mmHg. There is mild tricuspid regurgitation. Pulmonic Valve: There is mild pulmonic regurgitation. Pericardium: Normal pericardium with no significant pericardial effusion. Aorta: Normal aortic root. IVC: Dilated inferior vena cava with poor inspiratory collapse consistent with elevated right atrial pressures. Pulmonary Artery: Not well visualized. Conclusions 1. Normal left ventricular systolic function. Normal left ventricular cavity size. Mild concentric left ventricular hypertrophy. Ejection fraction is visually estimated at 65 %. Tissue Doppler/Mitral Doppler indices are consistent with pseudonormalization with mildly elevated left atrial pressure (Stage II diastolic dysfunction). 2. There is mild enlargement of right atrium. 3. Mild mitral leaflet calcification. Trace mitral regurgitation. 4. Normal trileaflet aortic valve structure. Trace aortic valve regurgitation. 5. Normal appearance of the tricuspid valve. Estimated peak PA systolic pressure 44 mmHg. There is mild tricuspid regurgitation. 6. Dilated inferior vena cava with poor inspiratory collapse consistent with elevated right atrial pressures. Electronically Signed By: Vincenzo Pastrana 30-Apr-2016 15:03:16 -0800 ALFONSO COLBY May 02, 2016 16:51
[2016-05-02] MEDS ORDERED: MAGNESIUM SULFATE 2 GM/50 ML 50 ML IVPB ONE ×2 (17:00→20:00)
[2016-05-03] VITALS (10 sets, daily range): BP systolic 106–139; BP diastolic 55–71; PULSE 40–72; RESP 18–20
[2016-05-03] MEDS: CHOLECALCIFEROL 1,000 UNIT TAB PO SCH (08:43)
[2016-05-03] MEDS: ASPIRIN (EC) 81 MG TAB PO SCH (08:43)
[2016-05-03] MEDS: FAMOTIDINE 20 MG TAB PO SCH (08:43)
[2016-05-03] MEDS: GUAIFENESIN/DM 5ML CUP PO PRN ×2 (08:45→18:03)
--- NOTE | 2016-05-03 12:05 | PN ---
Date/Time of Note Date/Time of Note DATE: 05/03/16 TIME: 12:01 Assessment/Plan VTE Prophylaxis VTE Prophylaxis Intervention: SCD's Lines/Catheters IV [facility] Saline Lock Assessment/Plan Assessment/Plan 70-year-old female with: 1. Likely viral upper respiratory infection or bronchitis, given the prolonged length of this infection and the symptoms of the patient. Nebulizer treatment as needed only. She is not hypoxic or dyspneic Tolerating po and fluids but feels somewhat still weak so reluctant to go home as she is alone D/c home today, continue symptomatic treatment. 2. Syncopal episode, likely vasovagal. Work up negative. 2-D echo wnl. 3. Hypomagnesemia: replete 4. Osteoporosis. Will continue her supplement total vitamins. She is to resume Prolia as an outpatient. Prophylaxis. SCDs to lower extremity for DVT prophylaxis and Pepcid for GI prophylaxis. DISPOSITION: D/c plan home today with HHPT and F/u with Dr Patel . Subjective 24 Hr Interval Summary Free Text/Dictation Patient doing OK and stable D/c home with home health and FWW Exam/Review of Systems Vital Signs Vitals Vital Signs Date Time Temp Pulse Resp B/P Pulse Ox O2 Delivery O2 Flow Rate FiO2 05/03/16 11:52 98.2 61 20 106/55 94 04/30/16 16:00 Room Air 04/30/16 12:00 2.0 04/30/16 04:52 21 Intake and Output 05/02/16 05/02/16 05/03/16 15:00 23:00 07:00 Intake Total 750 ml Balance 750 ml Exam Constitutional: alert, oriented, well developed Respiratory: clear to auscultation, normal air movement Cardiovascular: nl pulses, regular rate and rhythm Gastrointestinal: non-tender, soft Extremities: normal pulses 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, nl mental status, nl speech, other (improving generalised weakness ) Results Result Diagram: 04/30/16 0526 05/02/16 1153 Medications Medications Current Medications Aspirin (Halfprin) 81 mg DAILY PO Last administered on 05/03/16 08:43; Admin Dose 81 MG; Start 04/30/16 at 09:00 Cholecalciferol (Vitamin D) 1,000 unit DAILY PO Last administered on 05/03/16 08:43; Admin Dose 1,000 UNIT; Start 04/30/16 at 09:00 Lorazepam (Ativan) 0.5 mg Q8H PRN PO ANXIETY Last administered on 04/30/16 13: 44; Admin Dose 0.5 MG; Start 04/29/16 at 18:00 Ondansetron HCl (Zofran Inj) 4 mg Q6H PRN IV NAUSEA AND/OR VOMITING Last administered on 05/02/16 16:13; Admin Dose 4 MG; Start 04/29/16 at 18:00 Nitroglycerin (Nitroglycerin (Sl Tab) 0.4 Mg) 1 tab Q5M PRN SL CHEST PAIN; Start 04/29/16 at 18:00 Acetaminophen (Tylenol Tab) 650 mg Q6H PRN PO PAIN LEVEL 1-3 OR FEVER; Start at 18:00 Docusate Sodium (Colace) 100 mg Q12H PRN PO CONSTIPATION; Start 04/29/16 at 18: 00 Magnesium Hydroxide (Milk Of Mag) 30 ml DAILY PRN PO CONSTIPATION; Start at 18:00 Bisacodyl (Dulcolax Supp) 10 mg DAILY PRN [place] CONSTIPATION; Start 04/29/16 at 18 :00 Famotidine (Pepcid) 20 mg Q12 PO Last administered on 05/03/16 08:43; Admin Dose 20 MG; Start 04/29/16 at 21:00 Guaifenesin/ Dextromethorphan (Robitussin Dm Liquid Cup) 10 ml Q4H PRN PO COUGH Last administered on 05/03/16 08:45; Admin Dose 10 ML; Start 04/29/16 at 18:00 Metoclopramide HCl (Reglan Liq) 10 mg Q4 PRN PO nausea Last administered on 14:35; Admin Dose 10 MG; Start 04/30/16 at 13:00 ALFONSO COLBY May 03, 2016 12:05
[2016-05-03] MEDS: ONDANSETRON 4 MG INJ IV PRN ×2 (13:05→18:03)
[2016-05-03] MEDS ORDERED: ONDA-43 PO (13:09)
== END 2016-05-03 18:34 | disposition home or self-care (01) | DRG 203 ==
LOC: E/R 13:53 → MS4 04-30 16:32
PROVIDERS: ADMIT Internal Medicine; ATTEND Internal Medicine
DX: J20.8 Acute bronchitis due to other specified organisms (principal); E83.42 Hypomagnesemia; E86.0 Dehydration; K52.9 Noninfective gastroenteritis and colitis, unspecified; R55 Syncope and collapse; M81.0 Age-related osteoporosis without current pathological fracture
CPT/HCPCS: 36415; 71010; 80048; 80053; 80061; 81001; 81003; 82550; 82553; 83690; 83735; 84155; 84439; 84443; 84484; 85025; 87400; 93005; 93306; 94644; 94664; 96374; 96375; 96376; 97163; 97165; J2060; J2405; J2765; J3475; J7030